=== PATIENT | male | born 1985 | race Caucasian/White ===

== ENCOUNTER 2023-04-12 11:47 | Emergency (ER) | payer BC, SELFPAY ==
--- NOTE | ~2023-04-12 | CT_ITS ---
EXAMINATION: CT abdomen pelvis w con DATE: 04/12/2023 15:03 INDICATION: Left abdominal pain. TECHNIQUE: Computed tomography (CT) of the abdomen and pelvis was performed with 100 mL Omnipaque 350 intravenous contrast. Automated exposure control and iterative reconstruction technique were employe d. The dose-length product was 1325.78 mGy-cm. COMPARISON: None. FINDINGS: The visualized portions of the lung bases demonstrate minimal atelectasis. No pleural effus ion. The heart size is normal. No pericardial effusion. There is diffuse hepatic steatosis. The gallb ladder, spleen, pancreas, adrenal glands, and right kidney are normal. There is a delayed left-sided contrast nephrogram. There is a 5 mm cyst in left kidney. There is a 2 mm stone in left kidney. There is mild left hydronephrosis and hydroureter. There is a 2 mm stone in distal left ureter. The append ix is normal. There are no pathologically enlarged lymph nodes. There is no free intraperitoneal flui d. There are no dilated loops of bowel. There is mild thoracic and lumbar spondylosis. IMPRESSION: 1. 2 mm stone in distal left ureter with mild left hydronephrosis and hydroureter. 2. 2 mm nonobstructing left kidney stone. Reviewed, dictated and finalized at [facility] IMPRESSION: 1. 2 mm stone in distal left ureter with mild left hydronephrosis and hydrouret er. 2. 2 mm nonobstructing left kidney stone.
[2023-04-12 11:57] VITALS: BP 170/101; PULSE 75; RESP 16; TEMP 36.3; O2SAT 99
--- NOTE | 2023-04-12 14:14 | ED.ABDPAIN ---
HPI - Abdominal Pain General Chief Complaint: Abdominal Pain Stated Complaint: abdominal pain Time Seen by Provider: 04/12/23 14:14 Focused HPI: This is a 37-year-old male that presents to the emergency department for left-sided abdominal pain. Ongoing over the last 5 hours. Patient reports feeling bloated. Denies fevers, vomiting, diarrhea, dysuria, or hematuria. GENERAL: Well-appearing, well-nourished, and in no acute distress. HEAD: Normocephalic, atraumatic. CHEST: Clear to auscultation. No respiratory distress. HEART: Regular rate and rhythm. GASTROINTESTINAL: Mild distension, normoactive bowel sounds, left-sided abdominal tenderness NEURO: Alert and oriented x3. Patient screened in triage and initial orders placed. Additional care and disposition to be based upon diagnostic testing and treatment. Source: patient Mode of arrival: ambulatory Limitations: no limitations Related Data Allergies Allergy/AdvReac Type Severity Reaction Status Date / Time No Known Allergies Allergy Verified 04/12/23 11:49 Review of Systems Review of Systems: CONSTITUTIONAL: Denies fever GASTROINTESTINAL: Reports abdominal pain. Denies nausea, vomiting, or diarrhea. GENITOURINARY: Denies dysuria or hematuria. All systems reviewed & are unremarkable except as noted in HPI and below PMFSH Past Medical History Medical History (Updated 04/12/23 @ 16:52 by Shelly Villarreal PA-C) No active medical problems Social History Social History (Updated 04/12/23 @ 16:52 by Shelly Villarreal PA-C) Substance use: never Exam Narrative: GENERAL: Well-appearing, well-nourished, and in no acute distress. HEAD: Normocephalic, atraumatic. EYES: EOMI. CHEST: Clear to auscultation. No respiratory distress. No wheezes rales or rhonchi HEART: Regular rate and rhythm. No murmur heard. Normal peripheral pulses. ABDOMEN: Soft, nondistended, normal active bowel sounds. Mild tenderness to palpation throughout the left abdomen, without guarding EXTREMITIES: Normal range of motion. No edema. SKIN: Warm, dry, no rash. NEURO: No focal deficits. Alert and oriented x3. PSYCH: Normal mood and affect Course Course Emergency Course: Patient re-evaluated, feeling much better after pain medication. Updated on his workup. Agrees with plan of care Vital Signs Vital signs: Vital Signs Temperature 97.3 F L 04/12/23 11:57 Pulse Rate 75 04/12/23 11:57 Respiratory Rate 16 04/12/23 11:57 Blood Pressure 170/101 H 04/12/23 11:57 Pulse Oximetry 99 04/12/23 11:57 Temperature 97.3 F L 04/12/23 11:57 Pulse Rate 80 04/12/23 16:18 Respiratory Rate 20 04/12/23 16:18 Blood Pressure 195/111 H 04/12/23 16:18 Pulse Oximetry 100 04/12/23 16:18 MDM - Abdominal Pain MDM Narrative Medical decision making narrative: Patient presents to the emergency department for left-sided abdominal pain ongoing over the last 5 hours. He is afebrile and nontoxic appearing. Blood pressure elevated on arrival, this improved with pain management. CBC with leukocytosis to 14.1. Metabolic panel with normal kidney function. UA with red blood cells, no evidence of infection. CT abdomen and pelvis shows a 2 mm stone in the distal left ureter with mild left hydronephrosis. Patient re-evaluated, feeling much better after pain medication. Updated on his workup. Agrees with plan of care. He is to follow-up with urology. He was given warnings to return to the ER Differential Diagnosis Differential diagnosis: Likely calculus of kidney, constipation and diverticulitis Lab Data Attestation: I reviewed the patient's lab results. 04/12/23 14:04 04/12/23 14:04 Labs: Lab Results 04/12/23 Range/Units 14:04 WBC 14.1 H (4.5-10.0) K/mm3 RBC 5.43 (4.6-6.20) M/mm3 Hgb 15.0 (14.0-18.0) g/dL Hct 45.7 (42.0-52.0) % MCV 84.2 (80-100) fl MCH 27.6 (26-34) pg MCHC 32.8 (32-36) g/dl RDW 12.6 (11.5-14.5)
[2023-04-12 14:17] LABS: Basophils Percent Auto 0.3 % (0.2-1.2); Eosinophils Percent Auto 0.3 % (0-4.4); Hematocrit 45.7 % (42.0-52.0); Immature Granulocyte Absolute 0.09 K/mm3 (0.00-0.031); Immature Granulocyte Percent A 0.6 % (0-0.5); Lymphocytes Absolute Auto 1.19 K/mm3 (0.9-3.2); Lymphocytes Percent Auto 8.4 % (18.3-44.2); Mean Corpuscular HGB Conc 32.8 g/dl (32-36); Mean Corpuscular Hemoglobin 27.6 pg (26-34); Mean Corpuscular Volume 84.2 fl (80-100); Mean Platelet Volume 10.6 fl (7.4-10.4); Monocytes Absolute Auto 0.6 K/mm3 (0.1-0.6); Monocytes Percent Auto 4.5 % (2.6-8.5); Neutrophils Absolute Auto 12.1 K/mm3 (1.3-6.7); Neutrophils Percent Auto 85.9 % (45.5-73.1); Platelet Count Result 205 k/mm3 (150-375); Red Blood Count 5.43 M/mm3 (4.6-6.20); Red Cell Distribution Width 12.6 % (11.5-14.5); White Blood Count 14.1 K/mm3 (4.5-10.0)
[2023-04-12 14:28] LABS: Alanine Aminotransferase 44 U/L (6-50); Albumin Level 4.6 g/dL (3.5-5.1); Alkaline Phosphatase 109 U/L (38-126); Anion Gap 10 mmol/L (8-16); Aspartate Amino Transferase 35 U/L (17-59); Bilirubin,Total 1.4 mg/dL (0.2-1.3); Blood Urea Nitrogen 13 mg/dL (9-20); Calcium 9.5 mg/dL (8.4-10.2); Carbon Dioxide 24 mmol/L (22-30); Chloride 105 mmol/L (98-107); Estimated CRCL calculation 105 ml/min; Estimated Glomerular Filt Rate > 60; Glucose 161 mg/dL (65-110); Lipase 89 U/L (23-300); Potassium 4.8 mmol/L (3.4-5.0); Sodium 139 mmol/L (137-145)
[2023-04-12 14:36] LABS: Appearance Urine Clear (Clear); Bacteria Urine None Seen /hpf; Bilirubin Urine Negative (Negative); Blood Urine 3+ (Negative); Color Urine Yellow (Yellow); Glucose Urine UA Negative (Negative); Ketones Urine 1+ mg/dL (Negative); Leukocyte Esterase Ur Negative LEU/UL (Negative); Nitrate Urine Negative (Negative); Non Pathogenic Casts 0-2; Protein Urine Negative (Negative); RBC Urine >100 /hpf (0-2); Specific Grav Ur 1.018 (1.001-1.035); Squamous Epithelial Cell Urine None seen /hpf (Few); Urobilinogen Urine 0.2 mg/dL (<2.0); WBC Urine 0-5 /hpf
[2023-04-12 14:43] LABS: Add Urine Microscopic? YES
[2023-04-12 15:24] VITALS: PULSE 79; RESP 20; O2SAT 100
[2023-04-12 15:30] VITALS: PULSE 75; RESP 15; O2SAT 100
[2023-04-12 15:32] VITALS: BP 160/104; PULSE 76; RESP 19; O2SAT 99
[2023-04-12] MEDS: ONDANSETRON INJ 4 MG/2 ML VIAL IV PUSH (16:14)
[2023-04-12] MEDS: SODIUM CHLORIDE 0.9% IV 1,000 ML 999 ML IV CONT (16:14)
[2023-04-12] MEDS: MORPHINE SULFATE (*CRX) 4 MG/ML INJ IV PUSH (16:14)
[2023-04-12 16:18] VITALS: BP 195/111; PULSE 80; RESP 20; O2SAT 100
[2023-04-12 17:04] VITALS: BP 160/104; PULSE 85; RESP 20; O2SAT 98
== END 2023-04-12 17:47 | disposition home or self-care (01) ==
PROVIDERS: Emergency Provider Physician Assistant; PCP Family Medicine
DX: N13.2 Hydronephrosis with renal and ureteral calculous obstruction (principal)
CPT/HCPCS: 36415; 74177; 80053; 81001; 83690; 85025; 96361; 96374; 96375; 99284; J2270; J2405; J7030; Q9967